=== PATIENT | male | born 1970 | race Caucasian/White ===

== ENCOUNTER 2018-06-27 07:02 | Emergency (ER) | payer OTHER ==
[~2018-06-27] VITALS: Ht 165.1 cm; Wt 95.3 kg
[2018-06-27 07:02] VITALS: BP 191/105
[2018-06-27 07:22] LABS: ABSOLUTE NEUTROPHILS 4.5 thou/uL (1.4-8.2); BASOPHILS 0.8 % (0.0-2.0); EOSINOPHILS 2.2 % (0.0-3.0); HEMATOCRIT 50.2 % (42.0-52.0); HEMOGLOBIN 17.5 gm/dL (14.0-18.0); LYMPHOCYTES 23.7 % (24.0-44.0); MCH 33.3 pg (26.0-34.0); MCHC 34.9 g/dL (28.0-37.0); MCV 95.4 fL (80.0-100.0); MONOCYTES 11.3 % (1.0-8.0); RBC 5.26 mil/uL (4.50-6.00); RDW 12.5 % (10.5-14.5); WBC 7.3 thou/uL (4.0-11.0)
[2018-06-27 07:30] LABS: ANION GAP 8 mmol/L (7-16); BUN 9 mg/dL (7-18); CALCIUM 9.5 mg/dL (8.5-10.1); CHLORIDE 99 mmol/L (98-107); CO2 28 mmol/L (21-32); CREATININE 0.8 mg/dL (0.7-1.3); GLUCOSE 291 mg/dL (74-106); POTASSIUM 4.2 mmol/L (3.5-5.1); SODIUM 135 mmol/L (136-145)
[2018-06-27 07:39] LABS: ALBUMIN 4.1 g/dL (3.4-5.0); SGOT 35 U/L (15-37); SGPT 56 U/L (30-65); TOTAL BILIRUBIN 0.8 mg/dL (<0.1-1.0); TOTAL PROTEIN 7.9 g/dL (6.4-8.2); TROPONIN-I <0.06 ng/mL (<0.06)
[2018-06-27 07:45] LABS: PLATELET COUNT 169 thou/uL (150-400)
--- NOTE | 2018-06-27 08:39 | EKG ---
[address] [address] ELECTROCARDIOGRAM REPORT Name: CORBIN PIZARRO Room #: 170-1 ADM IN M.R.#: [id number] ������������������ Admission: 06/27/18 ������������������ Attend Phys: Ho Nassar MD Discharge: ������������������ Date of : 68 Report #: [id number] ����������������������������������������������������������������� [id number] THIS REPORT FOR: //name// [facility] ED Test Date: 2018-06-27 Test Time: 07:06:26 Pat Name: CORBIN PIZARRO Department: Room: 170 Gender: M [employer] Safety [employer] Environment Manager: Karla BRYANT : 1970 Requested By: Uzma Benjamin Order Number: [id number] MD: Edison Panda Measurements Intervals [place] Rate: 88 P: 31 NV: 149 QRS: 25 QRSD: 100 T: 7 QT: 370 QTc: 448 Interpretive Statements Sinus rhythm Probable left atrial enlargement Abnormal R-wave progression, late transition Left ventricular hypertrophy Baseline wander in lead(s) V2 No previous ECG available for comparison Electronically Signed On 06-27-2018 8:39:02 [employer] by Edison Panda [email or web address] ��������������������������������������������� <ELECTRONICALLY SIGNED> ���������������������������������������� By: Edison Panda MD ��������������������������������������������� 06/27/18 [id number] Edison Panda MD /EPI
[2018-06-27 08:47] VITALS: BP 208/102
[2018-06-27] MEDS ORDERED: METFORMIN HCL1000 M1 PO (08:48)
[2018-06-27] MEDS ORDERED: LISINOPRIL10 MG PO (08:48)
== END 2018-06-27 08:39 | disposition left against medical advice (07) ==
LOC: ER 07:02 → EROBS 08:21 → ER 08:21
PROVIDERS: Student in an Organized Health Care Education/Training Program
DX: R07.89 Other chest pain (principal)